=== PATIENT | female | born 1975 | race Caucasian/White ===

== ENCOUNTER 2018-09-02 08:39 | Emergency (ER) | payer SELFPAY ==
[~2018-09-02] VITALS: Ht 154.9 cm; Wt 63.5 kg
[~2018-09-02 08:39] MED LIST: AMLO10TA6 PO; CARV6.2511 PO; LISI-130 PO; TRAM50TA PO
[2018-09-02 11:13] LABS: CALCIUM 9.4 mg/dL (8.5-10.1); CREATININE 7.5 mg/dL (0.6-1.0); GFR 5.9; POTASSIUM 4.7 mmol/L (3.5-5.1)
[2018-09-02 11:19] LABS: ALBUMIN 2.9 g/dL (3.4-5.0); ALBUMIN/GLOBULIN RATIO 0.8 (1.0-1.7); MAGNESIUM 1.9 mg/dL (1.8-2.4); TOTAL BILIRUBIN 0.2 mg/dL (0.2-1.0); TOTAL PROTEIN 6.4 g/dL (6.4-8.2)
--- NOTE | 2018-09-02 11:21 | RAD ---
PORTABLE CHEST 1V Clinical indications: fluid overload end-stage renal disease. COMPARISON: August 25, 2018. Findings: No acute lung infiltrate or pleural effusion or pulmonary edema or lung mass or pneumothorax is seen. The heart size, pulmonary vasculature, mediastinum and both tanisha are stable. Right IJ central line is unchanged in position. Impression: No acute radiographic abnormality is seen. Electronically signed by: James Schaefer MD (09/02/2018 11:16 AM) [facility]
--- NOTE | 2018-09-02 11:39 | PHYS DOC ---
Past Medical History Past Medical History: Hypertension, Renal Disease Past Surgical History: No Surgical History Additional Past Surgical Histo: , 08-31-18 port for dailysis in the right sub-calvian Additional Information: quit 2 weeks ago, 1 ppd smoker before that. Alcohol Use: None Drug Use: None Adult General Chief Complaint Chief Complaint: DIALYSIS PROBLEM HPI HPI Patient is a 42-year-old female who presents with report of ESRD and is being scheduled for dialysis. She states that she was told to come to the emergency room to get dialysis today because she is not scheduled for dialysis until next Tuesday. She denies any chest pain or shortness of breath. She also denies any nausea, vomiting or diarrhea. Patient denies any associated symptoms. Review of Systems Review of Systems Constitutional: Denies fever or chills [] Respiratory: Denies cough or shortness of breath [] Cardiovascular: No additional information not addressed in HPI [] Integument: Denies rash or skin lesions [] Neurologic: Denies headache, focal weakness or sensory changes [] All other systems were reviewed and found to be within normal limits, except as documented in this note. Allergies Allergies Allergies Coded Allergies Type Severity Reaction Last Updated Verified aspirin Allergy Intermediate "burning in stomach" 09/02/18 Yes Physical Exam Physical Exam Constitutional: Well developed, well nourished, no acute distress, non-toxic appearance. [] HENT: Normocephalic, atraumatic, bilateral external ears normal, oropharynx moist, no oral exudates, nose normal. [] Eyes: PERRLA, EOMI, conjunctiva normal, no discharge. [] Neck: Normal range of motion, no tenderness, supple, no stridor. [] Cardiovascular: Regular rate and rhythm [] Lungs & Thorax: Bilateral breath sounds clear to auscultation [] Abdomen: Bowel sounds normal, soft, no tenderness. [] Skin: Warm, dry, no erythema, no rash. [] Extremities: No tenderness, no cyanosis, no clubbing, ROM intact. [] Neurologic: Alert and oriented X 3, no focal deficits noted. [] Current Patient Data Vital Signs Vital Signs Date Time Temp Pulse Resp B/P (MAP) Pulse Ox O2 Delivery O2 Flow Rate FiO2 09/02/18 10:00 98.1 93 20 156/96 (116) 99 Room Air 98.1 Lab Values Laboratory Tests Test 09/02/18 10:45 09/02/18 11:30 Sodium Level 140 mmol/L (136-145) Potassium Level 4.7 mmol/L (3.5-5.1) Chloride Level 104 mmol/L (98-107) Carbon Dioxide Level 22 mmol/L (21-32) Anion Gap 14 (6-14) Blood Urea Nitrogen 88 mg/dL (7-20) H Creatinine 7.5 mg/dL (0.6-1.0) H Estimated GFR (Cockcroft-Gault) 5.9 BUN/Creatinine Ratio 12 (6-20) Glucose Level 78 mg/dL (70-99) Calcium Level 9.4 mg/dL (8.5-10.1) Phosphorus Level 5.0 mg/dL (2.6-4.7) H Magnesium Level 1.9 mg/dL (1.8-2.4) Total Bilirubin 0.2 mg/dL (0.2-1.0) Aspartate Amino Transferase (AST) 30 U/L (15-37) Alanine Aminotransferase (ALT) 21 U/L (14-59) Alkaline Phosphatase 87 U/L (46-116) PR-Krx-N-Type Natriuretic Peptide 48260 pg/mL (0-124) H Total Protein 6.4 g/dL (6.4-8.2) Albumin 2.9 g/dL (3.4-5.0) L Albumin/Globulin Ratio 0.8 (1.0-1.7) L White Blood Count 8.7 x10^3/uL (4.0-11.0) Red Blood Count 2.66 x10^6/uL (3.50-5.40) L Hemoglobin 8.0 g/dL (12.0-15.5) L Hematocrit 24.8 % (36.0-47.0) L Mean Corpuscular Volume 93 fL (79-100) Mean Corpuscular Hemoglobin 30 pg (25-35) Mean Corpuscular Hemoglobin Concent 32 g/dL (31-37) Red Cell Distribution Width 15.6 % (11.5-14.5) H Platelet Count 214 x10^3/uL (140-400) Neutrophils (%) (Auto) 71 % (31-73) Lymphocytes (%) (Auto) 19 % (24-48) L Monocytes (%) (Auto) 6 % (0-9) Eosinophils (%) (Auto) 3 % (0-3) Basophils (%) (Auto) 1 % (0-3) Neutrophils # (Auto) 6.2 x10^3uL (1.8-7.7) Lymphocytes # (Auto) 1.6 x10^3/uL (1.0-4.8) Monocytes # (Auto) 0.5 x10^3/uL (0.0-1.1) Eosinophils # (Auto) 0.3 x10^3/uL (0.0-0.7) Basophils # (Auto) 0.1 x10^3/uL (0.0-0.2) Laboratory Tests 09/02/18 11:30 Laboratory Tests 09/02/18 10:45 EKG EKG [] Radiology/Procedures Radiology/Procedures [] Course & Med Decision Making Course & Med Decision Making Pertinent Labs and Imaging studies reviewed. (See chart for details) Patient moved to room upon arrival was evaluated by your medical staff and blood work was drawn. Patient's case was discussed with Dr. Hernandez and he indicates that if patient does not appear to be fluid overloaded that patient could be discharged home with plan to go to her scheduled dialysis on Tuesday. Patient's blood work returned and while the BUN/creatinine as well as potassium or a little bit higher than prior, after discussing with Dr. Hernandez, he again states that patient is stable for discharge home. He is recommending that patient watch her by mouth fluid intake as well as potassium intake. This plan was reviewed with patient who is in agreement. Dragon Disclaimer Dragon Disclaimer This electronic medical record was generated, in whole or in part, using a voice recognition dictation system. Departure Departure Impression: Primary Impression: ESRD (end stage renal disease) Disposition: HOME, SELF-CARE Condition: STABLE Referrals: NO PCP (PCP) Patient Instructions: Kidney Failure Additional Instructions: Keep your appointment for hemodialysis on Tuesday of this coming week. Return to emergency room if you develop symptoms of chest pain, shortness of breath or weakness. PONCE HERNANDEZ Jr. DO Sep 02, 2018 11:39
[2018-09-02 11:41] LABS: BASO # 0.1 x10^3/uL (0.0-0.2); BASO % 1 % (0-3); EOS # 0.3 x10^3/uL (0.0-0.7); EOS % 3 % (0-3); HEMATOCRIT 24.8 % (36.0-47.0); LYMPH # 1.6 x10^3/uL (1.0-4.8); LYMPH % 19 % (24-48); MEAN CORPUSCULAR HEMOGLOBIN 30 pg (25-35); MEAN CORPUSCULAR HGB CONC 32 g/dL (31-37); MEAN CORPUSCULAR VOLUME 93 fL (79-100); MONO # 0.5 x10^3/uL (0.0-1.1); MONO % 6 % (0-9); NEUT # 6.2 x10^3uL (1.8-7.7); NEUT % 71 % (31-73); PLATELET COUNT 214 x10^3/uL (140-400); RED BLOOD COUNT 2.66 x10^6/uL (3.50-5.40); RED CELL DISTRIBUTION WIDTH 15.6 % (11.5-14.5); WHITE BLOOD COUNT 8.7 x10^3/uL (4.0-11.0)
[2018-09-02 12:07] VITALS: BP 158/99
== END 2018-09-02 12:54 | disposition home or self-care (01) ==
LOC: ER 08:39
DX: I12.0 Hypertensive chronic kidney disease with stage 5 chronic kidney disease or end stage renal disease (principal); N18.6 End stage renal disease; Z87.891 Personal history of nicotine dependence; Z88.6 Allergy status to analgesic agent
CPT/HCPCS: 36415; 71045; 80053; 83735; 83880; 84100; 85025; 99284-25

== ENCOUNTER 2018-09-22 11:16 | Outpatient (CLI) | payer SELFPAY ==
[2018-09-22] VITALS (7 sets, daily range): BP systolic 120–150; BP diastolic 75–99
[~2018-09-22] VITALS: Ht 154.9 cm; Wt 64.4 kg
[~2018-09-22 11:16] MED LIST changes: -AMLO10TA6 PO; +AMLO10TA8 PO
[2018-09-22] MEDS ORDERED: LIDOCAINE 1%/EPI 1:100,000 20 ML VIAL. ONE (11:45)
[2018-09-22] MEDS ORDERED: fentaNYL PF VIAL 100 MCG/2 ML VIAL ONE (12:07)
[2018-09-22] MEDS ORDERED: MIDAZOLAM HCL/PF 2 MG/2 ML VIAL. ONE (12:07)
[2018-09-22] MEDS ORDERED: MIDAZOLAM HCL/PF 2 MG/2 ML VIAL. IV ONE (12:30)
[2018-09-22] MEDS ORDERED: fentaNYL PF VIAL 100 MCG/2 ML VIAL IV ONE (12:30)
[2018-09-22] MEDS ORDERED: LIDOCAINE 1%/EPI 1:100,000 20 ML VIAL. IJ ONE (12:30)
--- NOTE | 2018-09-22 14:36 | RAD ---
Exchange of right internal jugular dialysis catheter 09/22/2018 Indication: Poorly functioning catheter Discussion: The risks and benefits of the procedure were discussed the patient. Informed consent was obtained. Timeout procedure was performed. The right neck and chest including the pre-existing dialysis catheter were prepped and draped using sterile barrier technique. The pre-existing catheter was evaluated fluoroscopically, with the tip in the proximal right H inguinal patient supine position. However in the upright position prior chest radiographs demonstrated the catheter be significantly retracted with catheter tip just proximal to the cavoatrial junction. Catheter was placed over a guidewire, under fluoroscopic guidance, with a new 23 cm palindrome catheter, mildly deeper in position. The new catheter was found to flush and aspirate normally. Catheter was flushed. Catheter was secured in place. Sterile dressings were applied. Fluoroscopy time: 1.2 MIN Dose area product: 2 Gycm2. Impression: Replacement of the right internal jugular tunnel dialysis catheter
== END 2018-09-22 14:14 | disposition home or self-care (01) ==
LOC: INTRAD 11:16
PROVIDERS: ATTEND Internal Medicine Nephrology
DX: N18.6 End stage renal disease (principal); Z88.6 Allergy status to analgesic agent; Z79.899 Other long term (current) drug therapy; Z99.2 Dependence on renal dialysis
CPT/HCPCS: 36581; 77001; C1750; C1769; J2250; J3010; J3490; 99152; 99153

== ENCOUNTER 2018-12-01 09:11 | Day surgery (SDC) | payer MEDICARE, OTHER ==
[~2018-12-01 09:11] MED LIST changes: +BUPIVAC MPF-EPI 0.5%-1:200000 30 ML VIAL. ONE; +HEPARIN SODIUM 5,000 UNIT in IV NORMAL SALINE 500ML BAG 500 ML IRR ONE; +HYDROmorphone 2 MG/ML VIAL IV PRN; +IV RINGERS,LACTATED 1000ML 1,000 ML IV SCH; +MORPHINE SULFATE 2 MG/ML VIAL. IV PRN; +ONDANSETRON PF 4 MG/2 ML VIAL. IV PRN; +PROCHLORPERAZINE 10 MG/2 ML VIAL. IV PRN; +fentaNYL PF VIAL 100 MCG/2 ML VIAL IV PRN
[2018-12-01] MEDS ORDERED: SEVE800T9 PO (09:55)
[2018-12-01] MEDS ORDERED: IV NORMAL SALINE 1000ML BAG 1,000 ML IV ONE (10:00)
[2018-12-01] MEDS ORDERED: ROCURONIUM 50 MG/5 ML VIAL. ONE (10:17)
[2018-12-01] MEDS ORDERED: MIDAZOLAM HCL/PF 2 MG/2 ML VIAL. ONE (10:18)
[2018-12-01] MEDS ORDERED: LIDOCAINE 2% PF 5 ML VIAL. ONE (10:18)
[2018-12-01] MEDS ORDERED: PROPOFOL 20 ML IV ONE (10:18)
[2018-12-01] MEDS ORDERED: fentaNYL PF VIAL 100 MCG/2 ML VIAL ONE (10:18)
[2018-12-01] MEDS ORDERED: ONDANSETRON PF 4 MG/2 ML VIAL. ONE (10:18)
[2018-12-01] MEDS ORDERED: IV NORMAL SALINE 1000ML BAG 1,000 ML IV SCH (10:30)
[2018-12-01 10:43] LABS: BASO # 0.1 x10^3/uL (0.0-0.2); BASO % 1 % (0-3); EOS # 0.2 x10^3/uL (0.0-0.7); EOS % 4 % (0-3); HEMATOCRIT 34.8 % (36.0-47.0); HEMOGLOBIN 11.7 g/dL (12.0-15.5); LYMPH % 31 % (24-48); MEAN CORPUSCULAR HEMOGLOBIN 31 pg (25-35); MEAN CORPUSCULAR HGB CONC 34 g/dL (31-37); MEAN CORPUSCULAR VOLUME 92 fL (79-100); MONO # 0.5 x10^3/uL (0.0-1.1); MONO % 7 % (0-9); NEUT # 3.9 x10^3uL (1.8-7.7); NEUT % 58 % (31-73); PLATELET COUNT 182 x10^3/uL (140-400); RED BLOOD COUNT 3.79 x10^6/uL (3.50-5.40); RED CELL DISTRIBUTION WIDTH 13.7 % (11.5-14.5); WHITE BLOOD COUNT 6.7 x10^3/uL (4.0-11.0)
[2018-12-01] MEDS ORDERED: DEXAMETHASONE SOD PHOS 4 MG/ML VIAL ONE ×2 (10:57)
[2018-12-01 10:59] LABS: CALCIUM 10.2 mg/dL (8.5-10.1); GFR 7.6; POTASSIUM 5.1 mmol/L (3.5-5.1)
[2018-12-01] MEDS ORDERED: ceFAZolin 2GM PREMIX 2 GM/50 ML BAG IV ONE (11:00)
[2018-12-01 11:06] LABS: ALBUMIN 3.6 g/dL (3.4-5.0); TOTAL BILIRUBIN 0.3 mg/dL (0.2-1.0)
[2018-12-01] MEDS ORDERED: GLYCOPYRROLATE 1 MG/5 ML VIAL. ONE (11:18)
[2018-12-01] MEDS ORDERED: NEOSTIGMINE METHYLSULFATE 5 MG/5 ML SYRINGE. ONE (11:18)
[2018-12-01] MEDS ORDERED: KETAMINE HCL IN NACL, ISO-OSM 50 MG/5 ML SYRINGE ONE (11:28)
--- NOTE | 2018-12-01 11:44 | DISCH ---
DISCHARGE INSTRUCTIONS Condition on Discharge Condition on Discharge: Stable Activity After Discharge Activity Instructions for Disc: Activity as tolerated, Avoid exertion Bathing Instructions: No Tub Bath until see Lifting Instructions after Dis: No heavy lifting, No pulling or pushing Exercise Instruction after Dis: Progress as tolerated Driving Instructions after Dis: Do not drive today Diet after Discharge Diet after Discharge: Renal Dialysis Swallowing Supervision: None needed Wound Incision Care Wound/Incision Care: Keep wound/cast CDI Follow-Up Follow up with: Ramón in two weeks Treatment/Equipment after DC Adaptive Equipment Issued: None MARIA ISABEL OLIVO MD Dec 01, 2018 11:44
--- NOTE | 2018-12-01 11:49 | PDOC ---
BRIEF OPERATIVE NOTE Date: Dec 01, 2018 Pre-Op Diagnosis ESRD asking for PD catheter Post-Op Diagnosis same Procedure Performed l/s placement PD catheter Surgeon Ramón Anesthesia Type: General Blood Loss 5cc IV Fluid 1000cc Specimens Obtained none Findings no adhesions Complications none Operative Note Wk # [id number] MARIA ISABEL OLIVO MD Dec 01, 2018 11:49
[2018-12-01] MEDS ORDERED: traMADol 50 MG TABLET PO ONE (12:15)
[2018-12-01 12:26] VITALS: BP 133/79
--- NOTE | 2018-12-01 13:43 | OP ---
DATE OF SURGERY: 12/01/2018 PREOPERATIVE DIAGNOSIS: End-stage renal disease, asking for a peritoneal dialysis catheter. POSTOPERATIVE DIAGNOSIS: End-stage renal disease, asking for a peritoneal dialysis catheter. PROCEDURE: Laparoscopic placement of peritoneal dialysis catheter. SURGEON: Maria Isabel Olivo MD ANESTHESIA: General endotracheal. BLOOD LOSS: 5. INTRAVENOUS: 1 liter. DESCRIPTION OF PROCEDURE: The patient brought to the operating suite, given a general endotracheal anesthetic. Fairchild catheter placed to dependent drainage. Abdomen prepped and draped in the usual sterile fashion. The template was used to outline the course of the catheter allowing for the belt line at the umbilicus. Midline epigastric incision made after local infiltration of 0.5% Marcaine with incision made and a 5 mm Visiport used to safely gain access into the abdominal cavity, taking care to avoid injury of abdominal contents. Pneumoperitoneum established. Camera inserted. The insertion site was infiltrated with local anesthetic, incised and under direct vision, the Cook needle passed. Needle removed and the sheath was dilated followed by placement of the catheter and seating of the Dacron cuff just above the peritoneum. The remaining catheter was tunneled subcutaneously at the access site. Pneumoperitoneum released. Catheter flushed with 500 mL of normal saline, which are readily accepted and drained a similar amount. Incisions closed with subcutaneous 3-0 Vicryl and subcuticular 4-0 Monocryl with Steri-Strips. The catheter was "packed" with 60 mL of heparinized saline. Sterile dressings applied. Fairchild catheter removed. The patient awakened from her anesthetic and taken to the recovery room in satisfactory condition. MARIA ISABEL OLIVO MD DR: DONTRELL/nts JOB#: [id number] / [id number]
== END 2018-12-01 13:20 | disposition home or self-care (01) ==
LOC: SURG 09:11
PROVIDERS: ATTEND Surgery
DX: I12.0 Hypertensive chronic kidney disease with stage 5 chronic kidney disease or end stage renal disease (principal); N18.6 End stage renal disease; F41.9 Anxiety disorder, unspecified; Z88.6 Allergy status to analgesic agent; Z79.899 Other long term (current) drug therapy; Z83.3 Family history of diabetes mellitus; Z99.2 Dependence on renal dialysis
CPT/HCPCS: 36415; 49324; 80048; 82040; 82247; 85025; A7015; J0696; J1100; J1644; J2001; J2250; J2405; J2704; J2710; J3010; J3490; J7030; J7040

== ENCOUNTER 2018-12-20 10:15 | Outpatient (CLI) | payer MEDICARE, OTHER ==
[~2018-12-20] VITALS: Ht 154.9 cm; Wt 72.1 kg
[~2018-12-20 10:15] MED LIST changes: -BUPIVAC MPF-EPI 0.5%-1:200000 30 ML VIAL. ONE; -HEPARIN SODIUM 5,000 UNIT in IV NORMAL SALINE 500ML BAG 500 ML IRR ONE; -HYDROmorphone 2 MG/ML VIAL IV PRN; -IV RINGERS,LACTATED 1000ML 1,000 ML IV SCH; -MORPHINE SULFATE 2 MG/ML VIAL. IV PRN; -ONDANSETRON PF 4 MG/2 ML VIAL. IV PRN; -PROCHLORPERAZINE 10 MG/2 ML VIAL. IV PRN; +SEVE800T9 PO; -fentaNYL PF VIAL 100 MCG/2 ML VIAL IV PRN
[2018-12-20] MEDS ORDERED: IOHEXOL 240 MG/ML 50ML VIAL. ONE (10:32)
[2018-12-20] MEDS ORDERED: LISI-334 PO (10:33)
[2018-12-20] MEDS ORDERED: FURO80TA72 PO (10:33)
[2018-12-20] MEDS ORDERED: IOHEXOL 240 MG/ML 50ML VIAL. IJ ONE (10:45)
[2018-12-20] MEDS ORDERED: CONTRAST GIVEN. MC PRN (10:45)
--- NOTE | 2018-12-20 12:26 | NUR ---
critical potassium called from lab. Dr gonzalez. Spo0ke with Dr. Sanders at 1226. Doctor to get in touch with patient.
[2018-12-20] MEDS ORDERED: SEVE800T9 PO (22:32)
[2018-12-20] MEDS ORDERED: TRAM50TA PO (22:32)
--- NOTE | 2018-12-21 11:30 | RAD ---
Fluoroscopic evaluation of peritoneal dialysis catheter 12/21/2018 Indication: Catheter will not normally aspirate Comparison study: None relevant Discussion: Fluoroscopic evaluation of the previously existing peroneal dialysis catheter was performed. Catheter is grossly normal in position, curled in the pelvis, on initial fluoroscopic imaging. Contrast flows freely into the pelvis. A guidewire was advanced to the catheter however the catheter would not uncoil despite placement of a stiff guidewire. Sluggish aspiration persisted. Catheter was flushed and secured in place. Sterile dressings were applied. Fluoroscopy time:3.1 Minutes Dose area product: 14 Gycm2 Impression: Inability to uncurl the pelvic peritoneal dialysis catheter with persistent sluggish aspiration
== END 2018-12-20 11:45 | disposition home or self-care (01) ==
LOC: INTRAD 10:15
PROVIDERS: ATTEND Internal Medicine Nephrology
DX: T85.691A Other mechanical complication of intraperitoneal dialysis catheter, initial encounter (principal); N18.6 End stage renal disease; E87.5 Hyperkalemia; Z88.6 Allergy status to analgesic agent; Y83.2 Surgical operation with anastomosis, bypass or graft as the cause of abnormal reaction of the patient, or of later complication, without mention of misadventure at the time of the procedure; Y92.89 Other specified places as the place of occurrence of the external cause
CPT/HCPCS: 49400; A4215; C1769; Q9966; 36415; 74190; 84132

== ENCOUNTER 2018-12-20 16:07 | Inpatient (IN) | payer MEDICARE, OTHER ==
[~2018-12-20] VITALS: Ht 154.9 cm; Wt 68.7 kg
[~2018-12-20 16:07] MED LIST changes: +FURO80TA72 PO; +LISI-334 PO
[2018-12-20 16:50] LABS: BASO % 1 % (0-3); EOS # 0.2 x10^3/uL (0.0-0.7); EOS % 2 % (0-3); HEMATOCRIT 32.3 % (36.0-47.0); HEMOGLOBIN 10.8 g/dL (12.0-15.5); LYMPH # 1.4 x10^3/uL (1.0-4.8); LYMPH % 17 % (24-48); MEAN CORPUSCULAR HEMOGLOBIN 31 pg (25-35); MEAN CORPUSCULAR HGB CONC 33 g/dL (31-37); MEAN CORPUSCULAR VOLUME 92 fL (79-100); MONO # 0.4 x10^3/uL (0.0-1.1); MONO % 5 % (0-9); NEUT # 6.3 x10^3uL (1.8-7.7); NEUT % 76 % (31-73); PLATELET COUNT 219 x10^3/uL (140-400); RED BLOOD COUNT 3.51 x10^6/uL (3.50-5.40); RED CELL DISTRIBUTION WIDTH 14.3 % (11.5-14.5); WHITE BLOOD COUNT 8.4 x10^3/uL (4.0-11.0)
--- NOTE | 2018-12-20 16:55 | EKG ---
[facility] [address] [place] [address] Test Date: 2018-12-20 Test Time: 16:24:26 Pat Name: LETICIA MCLEAN Department: Room: Gender: F [employer] Att[employer]: : 1975 Requested By: JUNAID SANDERS Order Number: [id number] Reading MD: Juan Daniel Guardado Measurements Intervals [place] Rate: 88 P: 28 CT: 160 QRS: 26 QRSD: 90 T: 71 QT: 332 QTc: 405 Interpretive Statements SINUS RHYTHM QRS(T) CONTOUR ABNORMALITY CONSIDER ANTEROLATERAL MYOCARDIAL DAMAGE POSSIBLY ABNORMAL ECG Electronically Signed On 01-12-2019 12:07:08 CDT by Juan Daniel Guardado
[2018-12-20 17:07] LABS: ALBUMIN 3.5 g/dL (3.4-5.0); ALBUMIN/GLOBULIN RATIO 0.9 (1.0-1.7); CALCIUM 9.7 mg/dL (8.5-10.1); GFR 2.6; TOTAL BILIRUBIN 0.3 mg/dL (0.2-1.0); TOTAL PROTEIN 7.2 g/dL (6.4-8.2)
[2018-12-20 17:37] LABS: BILIRUBIN,URINE NEGATIVE (NEG); CLARITY,URINE CLEAR; NITRITE,URINE NEGATIVE (NEG); PROTEIN,URINE 100 mg/dL (NEG-TRACE); UROBILINOGEN,URINE 0.2 mg/dL (0.2 mg/dL)
[2018-12-20] MEDS ORDERED: IV NORMAL SALINE 1000ML BAG 1,000 ML IV PRN ×2 (17:43)
[2018-12-20] MEDS ORDERED: cloNIDine HCL 0.1 MG TABLET PO PRN (17:45)
[2018-12-20] MEDS ORDERED: LABETALOL 20 MG/4 ML DISP.SYRIN. IVP PRN (17:45)
[2018-12-20] MEDS ORDERED: DIALYSIS PATIENT. MC PRN (17:45)
[2018-12-20] MEDS ORDERED: diphenhydrAMINE 50 MG/ML VIAL IV PRN ×2 (17:45)
[2018-12-20 17:48] LABS: BACTERIA,URINE MANY /HPF (0-FEW); COLOR,URINE STRAW; RBC,URINE RARE /HPF (0-2); SQUAMOUS EPITHELIAL CELL,UR MANY /LPF; WBC,URINE OCC /HPF (0-4)
--- NOTE | 2018-12-20 17:59 | PHYS DOC ---
Past Medical History Past Medical History: Hypertension, Renal Disease (JUNAID SANDERS APRN) Past Surgical History: No Surgical History Additional Past Surgical Histo: right sub-calvian dialysis port, peritoneal dialysis port L side abd. (JUNAID SANDERS APRN) Alcohol Use: None Drug Use: None (JUNAID SANDERS APRN) Adult General Chief Complaint Chief Complaint: ABNORMAL LABS HPI HPI 43-year-old female presents to ER via POV for complaints of elevated potassium 7.5 on labs obtained for her dialysis. She was instructed to come to the ER for evaluation and was told she would receive dialysis while inpatient. Patient has no complaints on arrival states she is feeling better than she has in the past month. She denies any chest pain, palpitations, or shortness of air. (JUNAID SANDERS APRN) Review of Systems Review of Systems Constitutional: Denies fever or chills. Denies fatigue Eyes: Denies change in visual acuity, redness, or eye pain [] HENT: Denies nasal congestion or sore throat [] Respiratory: Denies cough or shortness of breath [] Cardiovascular: Denies CP/palpitations GI: Denies abdominal pain, nausea, vomiting, bloody stools or diarrhea [] : Denies dysuria or hematuria [] Musculoskeletal: Denies back pain or joint pain [] Integument: Denies rash or skin lesions [] Neurologic: Denies headache, focal weakness or sensory changes. Denies dizziness Endocrine: Denies polyuria or polydipsia [] All other systems were reviewed and found to be within normal limits, except as documented in this note. (JUNAID SANDERS APRN) Allergies Allergies Allergies Coded Allergies Type Severity Reaction Last Updated Verified aspirin Allergy Intermediate "burning in stomach" 12/01/18 Yes (CHAD WATKINS MD) Physical Exam Physical Exam Constitutional: Well developed, well nourished, no acute distress, non-toxic appearance. [] HENT: Normocephalic, atraumatic, oropharynx moist, nose normal. [] Eyes: Pupils equal, conjunctiva normal, no discharge. [] Neck: Normal range of motion, no tenderness, supple, no stridor. [] Cardiovascular: Heart rate regular rhythm, no murmur [] Lungs & Thorax: Bilateral breath sounds clear to auscultation- resp. equal/nonlabored Abdomen: Bowel sounds normal, soft- no distention/rigidity, no tenderness, LLQ peritoneal dialysis cath- no swelling/crepitus around site. Nontender on palp. around cath. No masses, no pulsatile masses. [] Skin: Warm, dry, no erythema, no rash. [] Back: No tenderness, no CVA tenderness. [] Extremities: No tenderness, no cyanosis, no clubbing, ROM intact, no edema. [] Neurologic: Alert and oriented X 3, normal motor function, normal sensory function, no focal deficits noted. [] Psychologic: Affect normal, judgement normal, mood normal. [] (REFFITTJUNAID APRN) Current Patient Data Vital Signs Vital Signs Date Time Temp Pulse Resp B/P (MAP) Pulse Ox O2 Delivery O2 Flow Rate FiO2 12/20/18 16:47 87 17 144/81 (102) 98 Room Air 12/20/18 16:15 98.1 98.1 (CHAD WATKINS MD) Lab Values Laboratory Tests Test 12/20/18 16:25 12/20/18 16:45 Urine Collection Type Unknown Urine Color Straw Urine Clarity Clear Urine pH 7.0 Urine Specific [place] 1.010 Urine Protein 100 mg/dL (NEG-TRACE) Urine Glucose (UA) 250 mg/dL (NEG) Urine Ketones (Stick) Negative mg/dL (NEG) Urine Blood Trace (NEG) Urine Nitrite Negative (NEG) Urine Bilirubin Negative (NEG) Urine Urobilinogen Dipstick 0.2 mg/dL (0.2 mg/dL) Urine Leukocyte Esterase Negative (NEG) Urine RBC Rare /HPF (0-2) Urine WBC Occ /HPF (0-4) Urine Squamous Epithelial Cells Many /LPF Urine Bacteria Many /HPF (0-FEW) White Blood Count 8.4 x10^3/uL (4.0-11.0) Red Blood Count 3.51 x10^6/uL (3.50-5.40) Hemoglobin 10.8 g/dL (12.0-15.5) L Hematocrit 32.3 % (36.0-47.0) L Mean Corpuscular Volume 92 fL (79-100) Mean Corpuscular Hemoglobin 31 pg (25-35) Mean Corpuscular Hemoglobin Concent 33 g/dL (31-37) Red Cell Distribution Width 14.3 % (11.5-14.5) Platelet Count 219 x10^3/uL (140-400) Neutrophils (%) (Auto) 76 % (31-73) H Lymphocytes (%) (Auto) 17 % (24-48) L Monocytes (%) (Auto) 5 % (0-9) Eosinophils (%) (Auto) 2 % (0-3) Basophils (%) (Auto) 1 % (0-3) Neutrophils # (Auto) 6.3 x10^3uL (1.8-7.7) Lymphocytes # (Auto) 1.4 x10^3/uL (1.0-4.8) Monocytes # (Auto) 0.4 x10^3/uL (0.0-1.1) Eosinophils # (Auto) 0.2 x10^3/uL (0.0-0.7) Basophils # (Auto) 0.0 x10^3/uL (0.0-0.2) Sodium Level 139 mmol/L (136-145) Potassium Level 7.0 mmol/L (3.5-5.1) *H Chloride Level 104 mmol/L (98-107) Carbon Dioxide Level 17 mmol/L (21-32) L Anion Gap 18 (6-14) H Blood Urea Nitrogen 111 mg/dL (7-20) H Creatinine 15.0 mg/dL (0.6-1.0) H Estimated GFR (Cockcroft-Gault) 2.6 BUN/Creatinine Ratio 7 (6-20) Glucose Level 81 mg/dL (70-99) Calcium Level 9.7 mg/dL (8.5-10.1) Total Bilirubin 0.3 mg/dL (0.2-1.0) Aspartate Amino Transferase (AST) 13 U/L (15-37) L Alanine Aminotransferase (ALT) 14 U/L (14-59) Alkaline Phosphatase 85 U/L (46-116) Total Protein 7.2 g/dL (6.4-8.2) Albumin 3.5 g/dL (3.4-5.0) Albumin/Globulin Ratio 0.9 (1.0-1.7) L Laboratory Tests 12/20/18 16:45 Laboratory Tests 12/20/18 16:45 (CHAD WATKINS MD) EKG EKG EKG obtained 12/20/18 at [address] Watkins Sinus rhythm Rate 88 No STEMI (JUNAID SANDERS APRN) Radiology/Procedures Radiology/Procedures [] (JUNAID SANDERS APRN) Course & Med Decision Making Course & Med Decision Making Pertinent Labs and Imaging studies reviewed. (See chart for details) Pt was sent to the ER due to labs showing potassium of 7.5 which were obtained by her dialysis center. Patient voiced no complaints and denied any chest pain or palpitations. EKG was obtained with no acute ST elevation or STEMI and troponin was <0.017. Patient had labs obtained while in the ER potassium was 7.0. Patient is being admitted to hospitalist services and dialysis was aware of patient's case. Spoke with mansi Mehta and he was aware of patient and was ready for dialysis with patient. 1721: Spoke with Dr. Ny, hospitalist and discussed pt's case and admit plan. (JUNAID SANDERS APRN) Course & Med Decision Making This pt was seen by an DEREK. I did not see or evaluate the pt unless specified above. I was available for consultation as needed. (CHAD WATKINS MD) Dragon Disclaimer Dragon Disclaimer This electronic medical record was generated, in whole or in part, using a voice recognition dictation system. (JUNAID SANDERS APRN) Departure Departure Impression: Primary Impression: Hyperkalemia Disposition: ADMITTED INPATIENT Admitting Physician: Other (Dr. Ny) (JUNAID SANDERS APRN) Condition: STABLE Referrals: NO PCP (PCP) JUNAID SANDERS APRN December 20, 2018 17:59 CHAD WATKINS MD December 29, 2018 18:35
[2018-12-20] MEDS ORDERED: LORazepam 0.5 MG TABLET PO PRN (20:15)
[2018-12-20] MEDS ORDERED: ACETAMINOPHEN 325 MG TABLET. PO PRN (20:15)
[2018-12-20] MEDS ORDERED: ZOLPIDEM 5 MG TABLET. PO PRN (20:15)
[2018-12-20] MEDS ORDERED: DOCUSATE SODIUM 100 MG CAPSULE. PO PRN (20:15)
[2018-12-20] MEDS ORDERED: ONDANSETRON PF 4 MG/2 ML VIAL. IV PRN (20:15)
[2018-12-20] MEDS ORDERED: guaiFENesin ORAL 200 MG/10 ML LIQUID. PO PRN (20:15)
[2018-12-20] MEDS ORDERED: ALBUTEROL SULFATE 2.5 MG/3 ML NEBU. NEB PRN (20:15)
--- NOTE | 2018-12-20 20:44 | PDOC1 ---
History and Physical Date of Admission Date of Admission 12/20/2018 Identification/Chief Complaint Chief Complaint my potassium is high Source Source: Chart review, Patient History of Present Illness History of Present Illness Patient who is a n ESRD on HD who recently is transitioning to peritoneal dialysis was in her usual state of health. She came to have her labs checked and found to be hyperkalemic reason why we were asked to admit for consult with nephrology and HD treatment to correct her hyeprkalemia. No dietary transgression reported. SHe has just started the transition. Patient denies chest pain no palpitations no shortness of breath no signs of decompensation , Patient is being evluated in the dialysis center. No concerns voiced during my encounter. Past Medical History Renal/: Chronic renal insuff Past Surgical History Past Surgical History: No pertinent history Social History ALCOHOL: none Drugs: Marijuana, Crystal meth Current Problem List Problem List Problems Medical Problems: (1) Hyperkalemia Status: Acute Current Medications Current Medications Current Medications Medications (Trade) Dose Ordered Sig/Corey Start Time Stop Time Status Last Admin Dose Admin Acetaminophen (Tylenol) 650 mg PRN Q4HRS PRN 12/20/18 20:15 Albuterol Sulfate (Ventolin Neb Soln) 2.5 mg PRN Q4HRS PRN 12/20/18 20:15 Amlodipine Besylate (Norvasc) 10 mg DAILY 12/21/18 09:00 Carvedilol (Coreg) 6.25 mg BIDWMEALS 12/21/18 08:00 Clonidine HCl (Catapres) 0.1 mg 1X PRN PRN 12/20/18 17:45 12/21/18 17:44 Diphenhydramine HCl (Benadryl) 25 mg 1X PRN PRN 12/20/18 17:45 12/21/18 17:44 Docusate Sodium (Colace) 100 mg PRN BID PRN 12/20/18 20:15 Furosemide (Lasix) 80 mg DAILY 12/21/18 09:00 Guaifenesin (Robitussin) 200 mg PRN Q4HRS PRN 12/20/18 20:15 Info (PHARMACY MONITORING -- do not chart) 1 each PRN DAILY PRN 12/20/18 17:45 Labetalol HCl (Normodyne Iv Push) 10 mg PRN Q1HR PRN 12/20/18 17:45 12/21/18 17:44 Lisinopril (Prinivil) 20 mg DAILY 12/21/18 09:00 Lorazepam (Ativan) 0.5 mg PRN Q4HRS PRN 12/20/18 20:15 Ondansetron HCl (Zofran) 4 mg PRN Q4HRS PRN 12/20/18 20:15 Sodium Chloride 1,000 ml @ 400 mls/hr Q2H30M PRN 12/20/18 17:43 12/21/18 05:42 Zolpidem Tartrate (Ambien) 5 mg PRN QHS PRN 12/20/18 20:15 Allergies Allergies Allergies Coded Allergies Type Severity Reaction Last Updated Verified aspirin Allergy Intermediate "burning in stomach" 12/01/18 Yes ROS Review of System CONSTITUTIONAL: No fever or chills EYES: No recent changes SKIN: No rash or itching CARDIOVASCULAR: No chest pain, syncope, palpitations, or edema RESPIRATORY: No SOB or cough GASTROINTESTINAL: No nausea, vomiting or abdominal pain NEUROLOGICAL: No headaches or weakness ENDOCRINE: No cold or heat intolerance GENITOURINARY: No urgency or frequency of urination MUSCULOSKELETAL: No back pain or joint pain LYMPHATICS: No enlarged lymph nodes PSYCHIATRIC: No anxiety or depression Physical Exam Physical Exam GEN.: No apparent distress. Alert and oriented. HEENT: Head is normocephalic, atraumatic NECK: Supple. LUNGS: Clear to auscultation. HEART: RRR, S1, S2 present. Peripheral pulses intact ABDOMEN: Soft, nontender. Positive bowel sounds. EXTREMITIES: Without any cyanosis. NEUROLOGIC: Normal speech, normal tone PSYCHIATRIC: Normal affect, normal mood. SKIN: No ulcerations Vitals Vitals Vital Signs Date Time Temp Pulse Resp B/P (MAP) Pulse Ox O2 Delivery O2 Flow Rate FiO2 12/20/18 17:47 90 16 140/81 (100) 96 Room Air 12/20/18 16:15 98.1 98.1 Labs Labs Laboratory Tests Test 12/20/18 16:25 12/20/18 16:45 Urine Collection Type Unknown Urine Color Straw Urine Clarity Clear Urine pH 7.0 Urine Specific [place] 1.010 Urine Protein 100 mg/dL (NEG-TRACE) Urine Glucose (UA) 250 mg/dL (NEG) Urine Ketones (Stick) Negative mg/dL (NEG) Urine Blood Trace (NEG) Urine Nitrite Negative (NEG) Urine Bilirubin Negative (NEG) Urine Urobilinogen Dipstick 0.2 mg/dL (0.2 mg/dL) Urine Leukocyte Esterase Negative (NEG) Urine RBC Rare /HPF (0-2) Urine WBC Occ /HPF (0-4) Urine Squamous Epithelial Cells Many /LPF Urine Bacteria Many /HPF (0-FEW) White Blood Count 8.4 x10^3/uL (4.0-11.0) Red Blood Count 3.51 x10^6/uL (3.50-5.40) Hemoglobin 10.8 g/dL (12.0-15.5) Hematocrit 32.3 % (36.0-47.0) Mean Corpuscular Volume 92 fL (79-100) Mean Corpuscular Hemoglobin 31 pg (25-35) Mean Corpuscular Hemoglobin Concent 33 g/dL (31-37) Red Cell Distribution Width 14.3 % (11.5-14.5) Platelet Count 219 x10^3/uL (140-400) Neutrophils (%) (Auto) 76 % (31-73) Lymphocytes (%) (Auto) 17 % (24-48) Monocytes (%) (Auto) 5 % (0-9) Eosinophils (%) (Auto) 2 % (0-3) Basophils (%) (Auto) 1 % (0-3) Neutrophils # (Auto) 6.3 x10^3uL (1.8-7.7) Lymphocytes # (Auto) 1.4 x10^3/uL (1.0-4.8) Monocytes # (Auto) 0.4 x10^3/uL (0.0-1.1) Eosinophils # (Auto) 0.2 x10^3/uL (0.0-0.7) Basophils # (Auto) 0.0 x10^3/uL (0.0-0.2) Sodium Level 139 mmol/L (136-145) Potassium Level 7.0 mmol/L (3.5-5.1) Chloride Level 104 mmol/L (98-107) Carbon Dioxide Level 17 mmol/L (21-32) Anion Gap 18 (6-14) Blood Urea Nitrogen 111 mg/dL (7-20) Creatinine 15.0 mg/dL (0.6-1.0) Estimated GFR (Cockcroft-Gault) 2.6 BUN/Creatinine Ratio 7 (6-20) Glucose Level 81 mg/dL (70-99) Calcium Level 9.7 mg/dL (8.5-10.1) Total Bilirubin 0.3 mg/dL (0.2-1.0) Aspartate Amino Transf (AST/SGOT) 13 U/L (15-37) Alanine Aminotransferase (ALT/SGPT) 14 U/L (14-59) Alkaline Phosphatase 85 U/L (46-116) Total Protein 7.2 g/dL (6.4-8.2) Albumin 3.5 g/dL (3.4-5.0) Albumin/Globulin Ratio 0.9 (1.0-1.7) Laboratory Tests Test 12/20/18 16:25 12/20/18 16:45 Urine Collection Type Unknown Urine Color Straw Urine Clarity Clear Urine pH 7.0 Urine Specific [place] 1.010 Urine Protein 100 mg/dL (NEG-TRACE) Urine Glucose (UA) 250 mg/dL (NEG) Urine Ketones (Stick) Negative mg/dL (NEG) Urine Blood Trace (NEG) Urine Nitrite Negative (NEG) Urine Bilirubin Negative (NEG) Urine Urobilinogen Dipstick 0.2 mg/dL (0.2 mg/dL) Urine Leukocyte Esterase Negative (NEG) Urine RBC Rare /HPF (0-2) Urine WBC Occ /HPF (0-4) Urine Squamous Epithelial Cells Many /LPF Urine Bacteria Many /HPF (0-FEW) White Blood Count 8.4 x10^3/uL (4.0-11.0) Red Blood Count 3.51 x10^6/uL (3.50-5.40) Hemoglobin 10.8 g/dL (12.0-15.5) Hematocrit 32.3 % (36.0-47.0) Mean Corpuscular Volume 92 fL (79-100) Mean Corpuscular Hemoglobin 31 pg (25-35) Mean Corpuscular Hemoglobin Concent 33 g/dL (31-37) Red Cell Distribution Width 14.3 % (11.5-14.5) Platelet Count 219 x10^3/uL (140-400) Neutrophils (%) (Auto) 76 % (31-73) Lymphocytes (%) (Auto) 17 % (24-48) Monocytes (%) (Auto) 5 % (0-9) Eosinophils (%) (Auto) 2 % (0-3) Basophils (%) (Auto) 1 % (0-3) Neutrophils # (Auto) 6.3 x10^3uL (1.8-7.7) Lymphocytes # (Auto) 1.4 x10^3/uL (1.0-4.8) Monocytes # (Auto) 0.4 x10^3/uL (0.0-1.1) Eosinophils # (Auto) 0.2 x10^3/uL (0.0-0.7) Basophils # (Auto) 0.0 x10^3/uL (0.0-0.2) Sodium Level 139 mmol/L (136-145) Potassium Level 7.0 mmol/L (3.5-5.1) Chloride Level 104 mmol/L (98-107) Carbon Dioxide Level 17 mmol/L (21-32) Anion Gap 18 (6-14) Blood Urea Nitrogen 111 mg/dL (7-20) Creatinine 15.0 mg/dL (0.6-1.0) Estimated GFR (Cockcroft-Gault) 2.6 BUN/Creatinine Ratio 7 (6-20) Glucose Level 81 mg/dL (70-99) Calcium Level 9.7 mg/dL (8.5-10.1) Total Bilirubin 0.3 mg/dL (0.2-1.0) Aspartate Amino Transf (AST/SGOT) 13 U/L (15-37) Alanine Aminotransferase (ALT/SGPT) 14 U/L (14-59) Alkaline Phosphatase 85 U/L (46-116) Total Protein 7.2 g/dL (6.4-8.2) Albumin 3.5 g/dL (3.4-5.0) Albumin/Globulin Ratio 0.9 (1.0-1.7) VTE Prophylaxis Ordered VTE Prophylaxis Devices: Yes VTE Pharmacological Prophylaxi: No Assessment/Plan Assessment/Plan ESRD on Hd Hyperkalemia, asymptomatic high anion gap aciodsis most liekly related to her electrolyte disturbance as a consequence of her medical renal disease Plan: HD as per nephrology reassess int he am maintain on telemetry further recommendations based on clinical course. SNEHA VELEZ MD December 20, 2018 20:44
[2018-12-20 21:25] VITALS: BP 151/76
[2018-12-20] MEDS ORDERED: SEVE800T9 PO (22:32)
[2018-12-20] MEDS ORDERED: TRAM50TA PO (22:32)
[2018-12-20 23:00] VITALS: BP 146/73
[2018-12-20] MEDS: CARVEDILOL 6.25 MG TABLET. PO SCH (23:03)
[2018-12-20] MEDS: SEVELAMER CARBONATE 800 MG TABLET. PO SCH (23:03)
[2018-12-21 04:13] VITALS: BP 102/75
[2018-12-21 07:00] VITALS: BP 139/85
[2018-12-21 07:45] LABS: ALBUMIN 3.5 g/dL (3.4-5.0); ALBUMIN/GLOBULIN RATIO 0.9 (1.0-1.7); CALCIUM 9.6 mg/dL (8.5-10.1); GFR 4.7; POTASSIUM 4.6 mmol/L (3.5-5.1); TOTAL BILIRUBIN 0.3 mg/dL (0.2-1.0); TOTAL PROTEIN 7.2 g/dL (6.4-8.2)
[2018-12-21] MEDS ORDERED: CARVEDILOL 6.25 MG TABLET. PO SCH (08:00)
[2018-12-21] MEDS: SEVELAMER CARBONATE 800 MG TABLET. PO SCH ×2 (08:57→12:00)
[2018-12-21] MEDS: CARVEDILOL 6.25 MG TABLET. PO SCH (08:58)
[2018-12-21] MEDS ORDERED: LISINOPRIL 20 MG TABLET PO SCH (09:00)
[2018-12-21] MEDS ORDERED: amLODIPine BESYLATE 10 MG TABLET PO SCH (09:00)
[2018-12-21] MEDS ORDERED: FUROSEMIDE 80 MG TABLET. PO SCH (09:00)
[2018-12-21] MEDS ORDERED: diphenhydrAMINE 50 MG/ML VIAL IV PRN ×2 (09:30)
[2018-12-21] MEDS ORDERED: DIALYSIS PATIENT. MC PRN (09:30)
--- NOTE | 2018-12-21 09:53 | PDOC2 ---
CONSULT Date of Consult Date of Consult DATE: 12/21/18 TIME: 09:40 Reason for Consult Reason for Consult: ESRD, Hyperkalemia Referring Physician Referring Physician: Dr. Ny Source Source: Chart review, Patient History of Present Illness Reason for Visit: Pt is 43 yo female ESRD on HD TTS with Dr. Hernandez who recently is transitioning to peritoneal dialysis .She has been on HD since Sep 2018. She has been in the process of transitioning to PD - PD cath was placed by Dr Melgar in November 2018 . Recently started attempting to use PD cath at the OP center,able to instill fluid, however minimal return. She was scheduled with IR yesterday, labs were drawn and was found to have K of 7(results after Pt left the hospital) She was asjed to come back to ED for Urgent HD. She reports that she had only 1 HD treatment recently as she was going for PD Denies N/V or abdominal pain. has Good UOP . Denies Constipation .Patient denies chest pain no palpitations no shortness of breath no signs of decompensation. She states she had gain weight since her last HD treatment, though no LE edema She was Dialyzed yesterday Past Medical History Renal/: Chronic renal insuff Past Surgical History Past Surgical History: No pertinent history Social History ALCOHOL: none Drugs: Marijuana, Crystal meth Lives: with Family Current Problem List Problem List Problems Medical Problems: (1) Hyperkalemia Status: Acute Current Medications Current Medications Current Medications Sodium Chloride 1,000 ml @ 1,000 mls/hr Q1H PRN IV hypotension; Start 12/20/18 at 17:43; Stop 12/20/18 at 23:42; Status DC Diphenhydramine HCl (Benadryl) 25 mg 1X PRN PRN IV ITCHING; Start 12/20/18 at 17:45; Stop 12/21/18 at 09:31; Status DC Diphenhydramine HCl (Benadryl) 25 mg 1X PRN PRN IV ITCHING; Start 12/20/18 at 17:45; Stop 12/21/18 at 09:31; Status DC Labetalol HCl (Normodyne Iv Push) 10 mg PRN Q1HR PRN IVP SBP > 180; Start 12/20/18 at 17:45; Stop 12/21/18 at 17:44 Clonidine HCl (Catapres) 0.1 mg 1X PRN PRN PO SBP > 180; Start 12/20/18 at 17:45; Stop 12/21/18 at 17:44 Sodium Chloride 1,000 ml @ 400 mls/hr Q2H30M PRN IV PATENCY; Start 12/20/18 at 17:43; Stop 12/21/18 at 05:42; Status DC Info (PHARMACY MONITORING -- do not chart) 1 each PRN DAILY PRN MC SEE COMMENTS; Start 12/20/18 at 17:45 Ondansetron HCl (Zofran) 4 mg PRN Q4HRS PRN IV NAUSEA/VOMITING; Start 12/20/18 at 20:15 Zolpidem Tartrate (Ambien) 5 mg PRN QHS PRN PO INSOMNIA; Start 12/20/18 at 20:15 Acetaminophen (Tylenol) 650 mg PRN Q4HRS PRN PO TEMP OVER 100.4F OR MILD PAIN; Start 12/20/18 at 20:15 Docusate Sodium (Colace) 100 mg PRN BID PRN PO CONSTIPATION; Start 12/20/18 at 20:15 Albuterol Sulfate (Ventolin Neb Soln) 2.5 mg PRN Q4HRS PRN NEB SHORTNESS OF BREATH; Start 12/20/18 at 20:15 Guaifenesin (Robitussin) 200 mg PRN Q4HRS PRN PO COUGH; Start 12/20/18 at 20:15 Lorazepam (Ativan) 0.5 mg PRN Q4HRS PRN PO ANXIETY / AGITATION; Start 12/20/18 at 20:15 Amlodipine Besylate (Norvasc) 10 mg DAILY PO Last administered on 12/21/18at 08:58; Start 12/21/18 at 09:00 Carvedilol (Coreg) 6.25 mg BIDWMEALS PO ; Start 12/21/18 at 08:00; Stop 12/21/18 at 08:00; Status DC Lisinopril (Prinivil) 20 mg DAILY PO Last administered on 12/21/18at 08:57; Start 12/21/18 at 09:00 Furosemide (Lasix) 80 mg DAILY PO Last administered on 12/21/18at 08:58; Start 12/21/18 at 09:00 Carvedilol (Coreg) 6.25 mg BIDWMEALS PO Last administered on 12/21/18at 08:58; Start 12/20/18 at 22:45 Sevelamer Carbonate (Renvela) 2,400 mg TIDWMEALS PO Last administered on 12/21/18at 08:57; Start 12/20/18 at 22:45 Sodium Chloride 1,000 ml @ 1,000 mls/hr Q1H PRN IV hypotension; Start 12/21/18 at 10:00; Stop 12/21/18 at 19:00 Diphenhydramine HCl (Benadryl) 25 mg 1X PRN PRN IV ITCHING; Start 12/21/18 at 09:30; Stop 12/21/18 at 19:00 Diphenhydramine HCl (Benadryl) 25 mg 1X PRN PRN IV ITCHING; Start 12/21/18 at 09:30; Stop 12/21/18 at 19:00 Sodium Chloride 1,000 ml @ 400 mls/hr Q2H30M PRN IV PATENCY; Start 12/21/18 at 10:00; Stop 12/21/18 at 19:00 Info (PHARMACY MONITORING -- do not chart) 1 each PRN DAILY PRN MC SEE COMMENTS; Start 12/21/18 at 09:30; Status UNV Active Scripts Active Amlodipine Besylate 10 Mg Tablet 10 Mg PO DAILY MDD 1 Carvedilol (Carvedilol) 6.25 Mg Tablet 6.25 Mg PO BIDWMEALS MDD 1 Reported Tramadol Hcl 50 Mg Tablet 50 Mg PO Q6HRS PRN Renvela (Sevelamer Carbonate) 800 Mg Tablet 3 Tab PO TID Lasix (Furosemide) 80 Mg Tablet 1 Tab PO DAILY Lisinopril 20 Mg Tablet 1 Tab PO DAILY Allergies Allergies: Coded Allergies: aspirin (Verified Allergy, Intermediate, "burning in stomach", 12/01/18) ROS Review of System As per HPI Physical Exam Physical Exam GEN.: No apparent distress. Alert and oriented. HEENT: OM moist NECK: Supple. LUNGS: Clear to auscultation. HEART: RRR, S1, S2 present. Peripheral pulses intact ABDOMEN: Soft, nontender, PD Cath in place EXTREMITIES: No edema NEUROLOGIC: Grossly Normal PSYCHIATRIC: Normal affect, normal mood. SKIN: No rash No [place] TDC Rt side Vital Signs Vital Signs Date Time Temp Pulse Resp B/P (MAP) Pulse Ox O2 Delivery O2 Flow Rate FiO2 12/21/18 08:58 89 139/85 12/21/18 08:00 Room Air 12/21/18 07:00 98.0 18 99 98.0 Assessment & Plan ESRD- TTS with Dr. 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 Melgar consulted Hyperkalemia- at presentation Urgent HD yesterday Dialysis Today per her TTS schedule Tolerating well HTN- Continue Antihypertensives Discussed with Pt and RN Labs Labs Laboratory Tests Test 12/20/18 16:25 12/20/18 16:45 12/21/18 07:10 Urine Collection Type Unknown Urine Color Straw Urine Clarity Clear Urine pH 7.0 Urine Specific [place] 1.010 Urine Protein 100 mg/dL (NEG-TRACE) Urine Glucose (UA) 250 mg/dL (NEG) Urine Ketones (Stick) Negative mg/dL (NEG) Urine Blood Trace (NEG) Urine Nitrite Negative (NEG) Urine Bilirubin Negative (NEG) Urine Urobilinogen Dipstick 0.2 mg/dL (0.2 mg/dL) Urine Leukocyte Esterase Negative (NEG) Urine RBC Rare /HPF (0-2) Urine WBC Occ /HPF (0-4) Urine Squamous Epithelial Cells Many /LPF Urine Bacteria Many /HPF (0-FEW) White Blood Count 8.4 x10^3/uL (4.0-11.0) Red Blood Count 3.51 x10^6/uL (3.50-5.40) Hemoglobin 10.8 g/dL (12.0-15.5) Hematocrit 32.3 % (36.0-47.0) Mean Corpuscular Volume 92 fL (79-100) Mean Corpuscular Hemoglobin 31 pg (25-35) Mean Corpuscular Hemoglobin Concent 33 g/dL (31-37) Red Cell Distribution Width 14.3 % (11.5-14.5) Platelet Count 219 x10^3/uL (140-400) Neutrophils (%) (Auto) 76 % (31-73) Lymphocytes (%) (Auto) 17 % (24-48) Monocytes (%) (Auto) 5 % (0-9) Eosinophils (%) (Auto) 2 % (0-3) Basophils (%) (Auto) 1 % (0-3) Neutrophils # (Auto) 6.3 x10^3uL (1.8-7.7) Lymphocytes # (Auto) 1.4 x10^3/uL (1.0-4.8) Monocytes # (Auto) 0.4 x10^3/uL (0.0-1.1) Eosinophils # (Auto) 0.2 x10^3/uL (0.0-0.7) Basophils # (Auto) 0.0 x10^3/uL (0.0-0.2) Sodium Level 139 mmol/L (136-145) 142 mmol/L (136-145) Potassium Level 7.0 mmol/L (3.5-5.1) 4.6 mmol/L (3.5-5.1) Chloride Level 104 mmol/L (98-107) 99 mmol/L (98-107) Carbon Dioxide Level 17 mmol/L (21-32) 30 mmol/L (21-32) Anion Gap 18 (6-14) 13 (6-14) Blood Urea Nitrogen 111 mg/dL (7-20) 51 mg/dL (7-20) Creatinine 15.0 mg/dL (0.6-1.0) 9.0 mg/dL (0.6-1.0) Estimated GFR (Cockcroft-Gault) 2.6 4.7 BUN/Creatinine Ratio 7 (6-20) 6 (6-20) Glucose Level 81 mg/dL (70-99) 90 mg/dL (70-99) Calcium Level 9.7 mg/dL (8.5-10.1) 9.6 mg/dL (8.5-10.1) Total Bilirubin 0.3 mg/dL (0.2-1.0) 0.3 mg/dL (0.2-1.0) Aspartate Amino Transf (AST/SGOT) 13 U/L (15-37) 15 U/L (15-37) Alanine Aminotransferase (ALT/SGPT) 14 U/L (14-59) 14 U/L (14-59) Alkaline Phosphatase 85 U/L (46-116) 86 U/L (46-116) Total Protein 7.2 g/dL (6.4-8.2) 7.2 g/dL (6.4-8.2) Albumin 3.5 g/dL (3.4-5.0) 3.5 g/dL (3.4-5.0) Albumin/Globulin Ratio 0.9 (1.0-1.7) 0.9 (1.0-1.7) Laboratory Tests Test 12/20/18 16:25 12/20/18 16:45 12/21/18 07:10 Urine Collection Type Unknown Urine Color Straw Urine Clarity Clear Urine pH 7.0 Urine Specific [place] 1.010 Urine Protein 100 mg/dL (NEG-TRACE) Urine Glucose (UA) 250 mg/dL (NEG) Urine Ketones (Stick) Negative mg/dL (NEG) Urine Blood Trace (NEG) Urine Nitrite Negative (NEG) Urine Bilirubin Negative (NEG) Urine Urobilinogen Dipstick 0.2 mg/dL (0.2 mg/dL) Urine Leukocyte Esterase Negative (NEG) Urine RBC Rare /HPF (0-2) Urine WBC Occ /HPF (0-4) Urine Squamous Epithelial Cells Many /LPF Urine Bacteria Many /HPF (0-FEW) White Blood Count 8.4 x10^3/uL (4.0-11.0) Red Blood Count 3.51 x10^6/uL (3.50-5.40) Hemoglobin 10.8 g/dL (12.0-15.5) Hematocrit 32.3 % (36.0-47.0) Mean Corpuscular Volume 92 fL (79-100) Mean Corpuscular Hemoglobin 31 pg (25-35) Mean Corpuscular Hemoglobin Concent 33 g/dL (31-37) Red Cell Distribution Width 14.3 % (11.5-14.5) Platelet Count 219 x10^3/uL (140-400) Neutrophils (%) (Auto) 76 % (31-73) Lymphocytes (%) (Auto) 17 % (24-48) Monocytes (%) (Auto) 5 % (0-9) Eosinophils (%) (Auto) 2 % (0-3) Basophils (%) (Auto) 1 % (0-3) Neutrophils # (Auto) 6.3 x10^3uL (1.8-7.7) Lymphocytes # (Auto) 1.4 x10^3/uL (1.0-4.8) Monocytes # (Auto) 0.4 x10^3/uL (0.0-1.1) Eosinophils # (Auto) 0.2 x10^3/uL (0.0-0.7) Basophils # (Auto) 0.0 x10^3/uL (0.0-0.2) Sodium Level 139 mmol/L (136-145) 142 mmol/L (136-145) Potassium Level 7.0 mmol/L (3.5-5.1) 4.6 mmol/L (3.5-5.1) Chloride Level 104 mmol/L (98-107) 99 mmol/L (98-107) Carbon Dioxide Level 17 mmol/L (21-32) 30 mmol/L (21-32) Anion Gap 18 (6-14) 13 (6-14) Blood Urea Nitrogen 111 mg/dL (7-20) 51 mg/dL (7-20) Creatinine 15.0 mg/dL (0.6-1.0) 9.0 mg/dL (0.6-1.0) Estimated GFR (Cockcroft-Gault) 2.6 4.7 BUN/Creatinine Ratio 7 (6-20) 6 (6-20) Glucose Level 81 mg/dL (70-99) 90 mg/dL (70-99) Calcium Level 9.7 mg/dL (8.5-10.1) 9.6 mg/dL (8.5-10.1) Total Bilirubin 0.3 mg/dL (0.2-1.0) 0.3 mg/dL (0.2-1.0) Aspartate Amino Transf (AST/SGOT) 13 U/L (15-37) 15 U/L (15-37) Alanine Aminotransferase (ALT/SGPT) 14 U/L (14-59) 14 U/L (14-59) Alkaline Phosphatase 85 U/L (46-116) 86 U/L (46-116) Total Protein 7.2 g/dL (6.4-8.2) 7.2 g/dL (6.4-8.2) Albumin 3.5 g/dL (3.4-5.0) 3.5 g/dL (3.4-5.0) Albumin/Globulin Ratio 0.9 (1.0-1.7) 0.9 (1.0-1.7) Review All relevant outside records, renal labs, imaging studies, telemetry/EKG's were reviewed. Images Images Fluoroscopic evaluation of peritoneal dialysis catheter 12/21/2018 Indication: Catheter will not normally aspirate Comparison study: None relevant Discussion: Fluoroscopic evaluation of the previously existing peroneal dialysis catheter was performed. Catheter is grossly normal in position, curled in the pelvis, on initial fluoroscopic imaging. Contrast flows freely into the pelvis. A guidewire was advanced to the catheter however the catheter would not uncoil despite placement of a stiff guidewire. Sluggish aspiration persisted. Catheter was flushed and secured in place. Sterile dressings were applied. SHERRY MAGDALENO MD December 21, 2018 09:53
[2018-12-21] MEDS ORDERED: IV NORMAL SALINE 1000ML BAG 1,000 ML IV PRN ×2 (10:00)
--- NOTE | 2018-12-21 10:53 | PDOC2 ---
GRECIA MORALES PROVIDER SCRIBE 12/21/18 1053: CONSULT Date of Consult Date of Consult DATE: 12/21/18 TIME: 10:33 Reason for Consult Reason for Consult: PD cath malfunction Identification/Chief Complaint Chief Complaint PD cath malfunction Source Source: Chart review, Patient History of Present Illness Reason for Visit: PD cath placed by Dr Olivo in November. Recently started attempting to use PD cath. Able to instill fluid, however minimal return. Denies pain, nausea, or emesis. Bowels working well Past Medical History Cardiovascular: HTN, Hyperlipidemia Pulmonary: COPD Psych: Anxiety, Depression Renal/: Chronic renal insuff Past Surgical History Past Surgical History: Other (PD cath) Family History Family History: Other (noncontributory to current illness ) Social History 1 pack per day ALCOHOL: none Drugs: Marijuana, Crystal meth Lives: with Family Current Problem List Problem List Problems Medical Problems: (1) Hyperkalemia Status: Acute Current Medications Current Medications Current Medications Sodium Chloride 1,000 ml @ 1,000 mls/hr Q1H PRN IV hypotension; Start 12/20/18 at 17:43; Stop 12/20/18 at 23:42; Status DC Diphenhydramine HCl (Benadryl) 25 mg 1X PRN PRN IV ITCHING; Start 12/20/18 at 17:45; Stop 12/21/18 at 09:31; Status DC Diphenhydramine HCl (Benadryl) 25 mg 1X PRN PRN IV ITCHING; Start 12/20/18 at 17:45; Stop 12/21/18 at 09:31; Status DC Labetalol HCl (Normodyne Iv Push) 10 mg PRN Q1HR PRN IVP SBP > 180; Start 12/20/18 at 17:45; Stop 12/21/18 at 17:44 Clonidine HCl (Catapres) 0.1 mg 1X PRN PRN PO SBP > 180; Start 12/20/18 at 17:45; Stop 12/21/18 at 17:44 Sodium Chloride 1,000 ml @ 400 mls/hr Q2H30M PRN IV PATENCY; Start 12/20/18 at 17:43; Stop 12/21/18 at 05:42; Status DC Info (PHARMACY MONITORING -- do not chart) 1 each PRN DAILY PRN MC SEE COMMENTS; Start 12/20/18 at 17:45 Ondansetron HCl (Zofran) 4 mg PRN Q4HRS PRN IV NAUSEA/VOMITING; Start 12/20/18 at 20:15 Zolpidem Tartrate (Ambien) 5 mg PRN QHS PRN PO INSOMNIA; Start 12/20/18 at 20:15 Acetaminophen (Tylenol) 650 mg PRN Q4HRS PRN PO TEMP OVER 100.4F OR MILD PAIN; Start 12/20/18 at 20:15 Docusate Sodium (Colace) 100 mg PRN BID PRN PO CONSTIPATION; Start 12/20/18 at 20:15 Albuterol Sulfate (Ventolin Neb Soln) 2.5 mg PRN Q4HRS PRN NEB SHORTNESS OF BREATH; Start 12/20/18 at 20:15 Guaifenesin (Robitussin) 200 mg PRN Q4HRS PRN PO COUGH; Start 12/20/18 at 20:15 Lorazepam (Ativan) 0.5 mg PRN Q4HRS PRN PO ANXIETY / AGITATION; Start 12/20/18 at 20:15 Amlodipine Besylate (Norvasc) 10 mg DAILY PO Last administered on 12/21/18at 08:58; Start 12/21/18 at 09:00 Carvedilol (Coreg) 6.25 mg BIDWMEALS PO ; Start 12/21/18 at 08:00; Stop 12/21/18 at 08:00; Status DC Lisinopril (Prinivil) 20 mg DAILY PO Last administered on 12/21/18at 08:57; Start 12/21/18 at 09:00 Furosemide (Lasix) 80 mg DAILY PO Last administered on 12/21/18at 08:58; Start 12/21/18 at 09:00 Carvedilol (Coreg) 6.25 mg BIDWMEALS PO Last administered on 12/21/18at 08:58; Start 12/20/18 at 22:45 Sevelamer Carbonate (Renvela) 2,400 mg TIDWMEALS PO Last administered on 12/21/18at 08:57; Start 12/20/18 at 22:45 Sodium Chloride 1,000 ml @ 1,000 mls/hr Q1H PRN IV hypotension; Start 12/21/18 at 10:00; Stop 12/21/18 at 19:00 Diphenhydramine HCl (Benadryl) 25 mg 1X PRN PRN IV ITCHING; Start 12/21/18 at 09:30; Stop 12/21/18 at 19:00 Diphenhydramine HCl (Benadryl) 25 mg 1X PRN PRN IV ITCHING; Start 12/21/18 at 09:30; Stop 12/21/18 at 19:00 Sodium Chloride 1,000 ml @ 400 mls/hr Q2H30M PRN IV PATENCY; Start 12/21/18 at 10:00; Stop 12/21/18 at 19:00 Info (PHARMACY MONITORING -- do not chart) 1 each PRN DAILY PRN MC SEE COMMENTS; Start 12/21/18 at 09:30; Status UNV Active Scripts Active Amlodipine Besylate 10 Mg Tablet 10 Mg PO DAILY MDD 1 Carvedilol (Carvedilol) 6.25 Mg Tablet 6.25 Mg PO BIDWMEALS MDD 1 Reported Tramadol Hcl 50 Mg Tablet 50 Mg PO Q6HRS PRN Renvela (Sevelamer Carbonate) 800 Mg Tablet 3 Tab PO TID Lasix (Furosemide) 80 Mg Tablet 1 Tab PO DAILY Lisinopril 20 Mg Tablet 1 Tab PO DAILY Allergies Allergies: Coded Allergies: aspirin (Verified Allergy, Intermediate, "burning in stomach", 12/01/18) ROS General: No: Chills, Other (fevers) PSYCHOLOGICAL ROS: No: Anxiety, Depression Eyes: No Blurry vision, No Double vision HEENT: No: Heacaches, Sore Throat Hematological and Lymphatic: No: Bleeding Problems, Blood Clots Respiratory: No: Cough, Shortness of breath Cardiovascular: No Chest Pain, No Palpitations Gastrointestinal: Yes Other (see hpi) Musculoskeletal: Yes Joint Pain Physical Exam General: Alert, Oriented X3, Cooperative, No acute distress HEENT: PERRLA, Mucous membr. moist/pink Lungs: Clear to auscultation, Normal air movement Heart: Regular rate, Normal S1, Normal S2, No murmurs Abdomen: Soft, Other (ND, NTTP, pd cath in place) Extremities: No clubbing, No cyanosis Skin: No rashes, No breakdown Neuro: Normal gait, Normal speech Psych/Mental Status: Mental status NL, Mood NL MUSCULOSKELETAL: No joint tenderness, No deformity Vitals VITALS Vital Signs Date Time Temp Pulse Resp B/P (MAP) Pulse Ox O2 Delivery O2 Flow Rate FiO2 12/21/18 08:58 89 139/85 12/21/18 08:00 Room Air 12/21/18 07:00 98.0 18 99 98.0 Labs Labs Laboratory Tests Test 12/20/18 16:25 12/20/18 16:45 12/21/18 07:10 Urine Collection Type Unknown Urine Color Straw Urine Clarity Clear Urine pH 7.0 Urine Specific [place] 1.010 Urine Protein 100 mg/dL (NEG-TRACE) Urine Glucose (UA) 250 mg/dL (NEG) Urine Ketones (Stick) Negative mg/dL (NEG) Urine Blood Trace (NEG) Urine Nitrite Negative (NEG) Urine Bilirubin Negative (NEG) Urine Urobilinogen Dipstick 0.2 mg/dL (0.2 mg/dL) Urine Leukocyte Esterase Negative (NEG) Urine RBC Rare /HPF (0-2) Urine WBC Occ /HPF (0-4) Urine Squamous Epithelial Cells Many /LPF Urine Bacteria Many /HPF (0-FEW) White Blood Count 8.4 x10^3/uL (4.0-11.0) Red Blood Count 3.51 x10^6/uL (3.50-5.40) Hemoglobin 10.8 g/dL (12.0-15.5) Hematocrit 32.3 % (36.0-47.0) Mean Corpuscular Volume 92 fL (79-100) Mean Corpuscular Hemoglobin 31 pg (25-35) Mean Corpuscular Hemoglobin Concent 33 g/dL (31-37) Red Cell Distribution Width 14.3 % (11.5-14.5) Platelet Count 219 x10^3/uL (140-400) Neutrophils (%) (Auto) 76 % (31-73) Lymphocytes (%) (Auto) 17 % (24-48) Monocytes (%) (Auto) 5 % (0-9) Eosinophils (%) (Auto) 2 % (0-3) Basophils (%) (Auto) 1 % (0-3) Neutrophils # (Auto) 6.3 x10^3uL (1.8-7.7) Lymphocytes # (Auto) 1.4 x10^3/uL (1.0-4.8) Monocytes # (Auto) 0.4 x10^3/uL (0.0-1.1) Eosinophils # (Auto) 0.2 x10^3/uL (0.0-0.7) Basophils # (Auto) 0.0 x10^3/uL (0.0-0.2) Sodium Level 139 mmol/L (136-145) 142 mmol/L (136-145) Potassium Level 7.0 mmol/L (3.5-5.1) 4.6 mmol/L (3.5-5.1) Chloride Level 104 mmol/L (98-107) 99 mmol/L (98-107) Carbon Dioxide Level 17 mmol/L (21-32) 30 mmol/L (21-32) Anion Gap 18 (6-14) 13 (6-14) Blood Urea Nitrogen 111 mg/dL (7-20) 51 mg/dL (7-20) Creatinine 15.0 mg/dL (0.6-1.0) 9.0 mg/dL (0.6-1.0) Estimated GFR (Cockcroft-Gault) 2.6 4.7 BUN/Creatinine Ratio 7 (6-20) 6 (6-20) Glucose Level 81 mg/dL (70-99) 90 mg/dL (70-99) Calcium Level 9.7 mg/dL (8.5-10.1) 9.6 mg/dL (8.5-10.1) Total Bilirubin 0.3 mg/dL (0.2-1.0) 0.3 mg/dL (0.2-1.0) Aspartate Amino Transf (AST/SGOT) 13 U/L (15-37) 15 U/L (15-37) Alanine Aminotransferase (ALT/SGPT) 14 U/L (14-59) 14 U/L (14-59) Alkaline Phosphatase 85 U/L (46-116) 86 U/L (46-116) Total Protein 7.2 g/dL (6.4-8.2) 7.2 g/dL (6.4-8.2) Albumin 3.5 g/dL (3.4-5.0) 3.5 g/dL (3.4-5.0) Albumin/Globulin Ratio 0.9 (1.0-1.7) 0.9 (1.0-1.7) Laboratory Tests Test 12/20/18 16:25 12/20/18 16:45 12/21/18 07:10 Urine Collection Type Unknown Urine Color Straw Urine Clarity Clear Urine pH 7.0 Urine Specific [place] 1.010 Urine Protein 100 mg/dL (NEG-TRACE) Urine Glucose (UA) 250 mg/dL (NEG) Urine Ketones (Stick) Negative mg/dL (NEG) Urine Blood Trace (NEG) Urine Nitrite Negative (NEG) Urine Bilirubin Negative (NEG) Urine Urobilinogen Dipstick 0.2 mg/dL (0.2 mg/dL) Urine Leukocyte Esterase Negative (NEG) Urine RBC Rare /HPF (0-2) Urine WBC Occ /HPF (0-4) Urine Squamous Epithelial Cells Many /LPF Urine Bacteria Many /HPF (0-FEW) White Blood Count 8.4 x10^3/uL (4.0-11.0) Red Blood Count 3.51 x10^6/uL (3.50-5.40) Hemoglobin 10.8 g/dL (12.0-15.5) Hematocrit 32.3 % (36.0-47.0) Mean Corpuscular Volume 92 fL (79-100) Mean Corpuscular Hemoglobin 31 pg (25-35) Mean Corpuscular Hemoglobin Concent 33 g/dL (31-37) Red Cell Distribution Width 14.3 % (11.5-14.5) Platelet Count 219 x10^3/uL (140-400) Neutrophils (%) (Auto) 76 % (31-73) Lymphocytes (%) (Auto) 17 % (24-48) Monocytes (%) (Auto) 5 % (0-9) Eosinophils (%) (Auto) 2 % (0-3) Basophils (%) (Auto) 1 % (0-3) Neutrophils # (Auto) 6.3 x10^3uL (1.8-7.7) Lymphocytes # (Auto) 1.4 x10^3/uL (1.0-4.8) Monocytes # (Auto) 0.4 x10^3/uL (0.0-1.1) Eosinophils # (Auto) 0.2 x10^3/uL (0.0-0.7) Basophils # (Auto) 0.0 x10^3/uL (0.0-0.2) Sodium Level 139 mmol/L (136-145) 142 mmol/L (136-145) Potassium Level 7.0 mmol/L (3.5-5.1) 4.6 mmol/L (3.5-5.1) Chloride Level 104 mmol/L (98-107) 99 mmol/L (98-107) Carbon Dioxide Level 17 mmol/L (21-32) 30 mmol/L (21-32) Anion Gap 18 (6-14) 13 (6-14) Blood Urea Nitrogen 111 mg/dL (7-20) 51 mg/dL (7-20) Creatinine 15.0 mg/dL (0.6-1.0) 9.0 mg/dL (0.6-1.0) Estimated GFR (Cockcroft-Gault) 2.6 4.7 BUN/Creatinine Ratio 7 (6-20) 6 (6-20) Glucose Level 81 mg/dL (70-99) 90 mg/dL (70-99) Calcium Level 9.7 mg/dL (8.5-10.1) 9.6 mg/dL (8.5-10.1) Total Bilirubin 0.3 mg/dL (0.2-1.0) 0.3 mg/dL (0.2-1.0) Aspartate Amino Transf (AST/SGOT) 13 U/L (15-37) 15 U/L (15-37) Alanine Aminotransferase (ALT/SGPT) 14 U/L (14-59) 14 U/L (14-59) Alkaline Phosphatase 85 U/L (46-116) 86 U/L (46-116) Total Protein 7.2 g/dL (6.4-8.2) 7.2 g/dL (6.4-8.2) Albumin 3.5 g/dL (3.4-5.0) 3.5 g/dL (3.4-5.0) Albumin/Globulin Ratio 0.9 (1.0-1.7) 0.9 (1.0-1.7) Assessment/Plan Assessment/Plan pd cath malfunction will review with Dr Olivo continue HD MARIA ISABEL LOIVO MD 12/21/18 1757: CONSULT Assessment/Plan Assessment/Plan pt seen in dialysis feels much better after being dialyzed had IR try to open PD catheter recently, unsuccessfully I offered l/s repositioning/replacement of her catheter she is not sure she wants to continue trying to use PD she will think about it and follow up with me in the office thanks for consult GRECIA MORALES APRN December 21, 2018 10:53 MARIA ISABEL OLIVO MD December 21, 2018 12:59
--- NOTE | 2018-12-21 15:00 | PDOC3 ---
Discharge Summary Visit Information Date of Admission: December 20, 2018 Date of Discharge: December 21, 2018 Admitting Diagnosis: Hyperkalemia Final Diagnosis Problems Medical Problems: (1) Hyperkalemia Status: Acute Brief Hospital Course Allergies Allergies Coded Allergies Type Severity Reaction Last Updated Verified aspirin Allergy Intermediate "burning in stomach" 12/01/18 Yes Vital Signs Vital Signs Date Time Temp Pulse Resp B/P (MAP) Pulse Ox O2 Delivery O2 Flow Rate FiO2 12/21/18 08:58 89 139/85 12/21/18 08:00 Room Air 12/21/18 07:00 98.0 18 99 98.0 Gen.: well-developed well-nourished in no apparent distress Head: Normal shape atraumatic Eyes: Pupils equal reactive to light and accommodation, normal conjunctivae and lids Ears: Normal shape Nose: Normal shape no trauma Mouth: No exudates of the back of throat no thrush no lesions Neck: Supple no JVD no carotid bruit or lymphadenopathy no thyromegaly Chest: Lungs clear to auscultation with good inspiratory effort no crackles rales or rhonchi Cardiovascular: S1-S2 regular rhythm no murmurs gallops or rubs Abdomen: Bowel sounds present soft nontender no hepatosplenomegaly appreciated sign Extremities: No clubbing no cyanosis no edema peripheral pulses palpated bilaterally Neurological: Alert awake oriented in person time place and situation, cranial nerves II through XII intact, no motor or sensory deficits appreciated Psych: Appropriate mood, cooperative Lab Results Laboratory Tests Test 12/20/18 16:25 12/20/18 16:45 12/21/18 07:10 Urine Collection Type Unknown Urine Color Straw Urine Clarity Clear Urine pH 7.0 Urine Specific [place] 1.010 Urine Protein 100 mg/dL (NEG-TRACE) Urine Glucose (UA) 250 mg/dL (NEG) Urine Ketones (Stick) Negative mg/dL (NEG) Urine Blood Trace (NEG) Urine Nitrite Negative (NEG) Urine Bilirubin Negative (NEG) Urine Urobilinogen Dipstick 0.2 mg/dL (0.2 mg/dL) Urine Leukocyte Esterase Negative (NEG) Urine RBC Rare /HPF (0-2) Urine WBC Occ /HPF (0-4) Urine Squamous Epithelial Cells Many /LPF Urine Bacteria Many /HPF (0-FEW) White Blood Count 8.4 x10^3/uL (4.0-11.0) Red Blood Count 3.51 x10^6/uL (3.50-5.40) Hemoglobin 10.8 g/dL (12.0-15.5) Hematocrit 32.3 % (36.0-47.0) Mean Corpuscular Volume 92 fL (79-100) Mean Corpuscular Hemoglobin 31 pg (25-35) Mean Corpuscular Hemoglobin Concent 33 g/dL (31-37) Red Cell Distribution Width 14.3 % (11.5-14.5) Platelet Count 219 x10^3/uL (140-400) Neutrophils (%) (Auto) 76 % (31-73) Lymphocytes (%) (Auto) 17 % (24-48) Monocytes (%) (Auto) 5 % (0-9) Eosinophils (%) (Auto) 2 % (0-3) Basophils (%) (Auto) 1 % (0-3) Neutrophils # (Auto) 6.3 x10^3uL (1.8-7.7) Lymphocytes # (Auto) 1.4 x10^3/uL (1.0-4.8) Monocytes # (Auto) 0.4 x10^3/uL (0.0-1.1) Eosinophils # (Auto) 0.2 x10^3/uL (0.0-0.7) Basophils # (Auto) 0.0 x10^3/uL (0.0-0.2) Sodium Level 139 mmol/L (136-145) 142 mmol/L (136-145) Potassium Level 7.0 mmol/L (3.5-5.1) 4.6 mmol/L (3.5-5.1) Chloride Level 104 mmol/L (98-107) 99 mmol/L (98-107) Carbon Dioxide Level 17 mmol/L (21-32) 30 mmol/L (21-32) Anion Gap 18 (6-14) 13 (6-14) Blood Urea Nitrogen 111 mg/dL (7-20) 51 mg/dL (7-20) Creatinine 15.0 mg/dL (0.6-1.0) 9.0 mg/dL (0.6-1.0) Estimated GFR (Cockcroft-Gault) 2.6 4.7 BUN/Creatinine Ratio 7 (6-20) 6 (6-20) Glucose Level 81 mg/dL (70-99) 90 mg/dL (70-99) Calcium Level 9.7 mg/dL (8.5-10.1) 9.6 mg/dL (8.5-10.1) Total Bilirubin 0.3 mg/dL (0.2-1.0) 0.3 mg/dL (0.2-1.0) Aspartate Amino Transf (AST/SGOT) 13 U/L (15-37) 15 U/L (15-37) Alanine Aminotransferase (ALT/SGPT) 14 U/L (14-59) 14 U/L (14-59) Alkaline Phosphatase 85 U/L (46-116) 86 U/L (46-116) Total Protein 7.2 g/dL (6.4-8.2) 7.2 g/dL (6.4-8.2) Albumin 3.5 g/dL (3.4-5.0) 3.5 g/dL (3.4-5.0) Albumin/Globulin Ratio 0.9 (1.0-1.7) 0.9 (1.0-1.7) Laboratory Tests Test 12/20/18 16:25 12/20/18 16:45 12/21/18 07:10 Urine Collection Type Unknown Urine Color Straw Urine Clarity Clear Urine pH 7.0 Urine Specific [place] 1.010 Urine Protein 100 mg/dL (NEG-TRACE) Urine Glucose (UA) 250 mg/dL (NEG) Urine Ketones (Stick) Negative mg/dL (NEG) Urine Blood Trace (NEG) Urine Nitrite Negative (NEG) Urine Bilirubin Negative (NEG) Urine Urobilinogen Dipstick 0.2 mg/dL (0.2 mg/dL) Urine Leukocyte Esterase Negative (NEG) Urine RBC Rare /HPF (0-2) Urine WBC Occ /HPF (0-4) Urine Squamous Epithelial Cells Many /LPF Urine Bacteria Many /HPF (0-FEW) White Blood Count 8.4 x10^3/uL (4.0-11.0) Red Blood Count 3.51 x10^6/uL (3.50-5.40) Hemoglobin 10.8 g/dL (12.0-15.5) Hematocrit 32.3 % (36.0-47.0) Mean Corpuscular Volume 92 fL (79-100) Mean Corpuscular Hemoglobin 31 pg (25-35) Mean Corpuscular Hemoglobin Concent 33 g/dL (31-37) Red Cell Distribution Width 14.3 % (11.5-14.5) Platelet Count 219 x10^3/uL (140-400) Neutrophils (%) (Auto) 76 % (31-73) Lymphocytes (%) (Auto) 17 % (24-48) Monocytes (%) (Auto) 5 % (0-9) Eosinophils (%) (Auto) 2 % (0-3) Basophils (%) (Auto) 1 % (0-3) Neutrophils # (Auto) 6.3 x10^3uL (1.8-7.7) Lymphocytes # (Auto) 1.4 x10^3/uL (1.0-4.8) Monocytes # (Auto) 0.4 x10^3/uL (0.0-1.1) Eosinophils # (Auto) 0.2 x10^3/uL (0.0-0.7) Basophils # (Auto) 0.0 x10^3/uL (0.0-0.2) Sodium Level 139 mmol/L (136-145) 142 mmol/L (136-145) Potassium Level 7.0 mmol/L (3.5-5.1) 4.6 mmol/L (3.5-5.1) Chloride Level 104 mmol/L (98-107) 99 mmol/L (98-107) Carbon Dioxide Level 17 mmol/L (21-32) 30 mmol/L (21-32) Anion Gap 18 (6-14) 13 (6-14) Blood Urea Nitrogen 111 mg/dL (7-20) 51 mg/dL (7-20) Creatinine 15.0 mg/dL (0.6-1.0) 9.0 mg/dL (0.6-1.0) Estimated GFR (Cockcroft-Gault) 2.6 4.7 BUN/Creatinine Ratio 7 (6-20) 6 (6-20) Glucose Level 81 mg/dL (70-99) 90 mg/dL (70-99) Calcium Level 9.7 mg/dL (8.5-10.1) 9.6 mg/dL (8.5-10.1) Total Bilirubin 0.3 mg/dL (0.2-1.0) 0.3 mg/dL (0.2-1.0) Aspartate Amino Transf (AST/SGOT) 13 U/L (15-37) 15 U/L (15-37) Alanine Aminotransferase (ALT/SGPT) 14 U/L (14-59) 14 U/L (14-59) Alkaline Phosphatase 85 U/L (46-116) 86 U/L (46-116) Total Protein 7.2 g/dL (6.4-8.2) 7.2 g/dL (6.4-8.2) Albumin 3.5 g/dL (3.4-5.0) 3.5 g/dL (3.4-5.0) Albumin/Globulin Ratio 0.9 (1.0-1.7) 0.9 (1.0-1.7) Brief Hospital Course Patient who is a n ESRD on HD who recently is transitioning to peritoneal dialysis was in her usual state of health. She came to have her labs checked and found to be hyperkalemic reason why we were asked to admit for consult with nephrology and HD treatment to correct her hyeprkalemia. No dietary tr ansgression reported. SHe has just started the transition. Patient denies chest pain no palpitations no shortness of breath no signs of decompensation , Patient is being evluated in the dialysis center. No concerns voiced during my encounter SHe 2 sessions of hemodialysis that result for hyperkalemia. She will continue with her hemodialysis on Tuesday as she was previously doing. She was seen in consultation by surgery due to a suspected PD catheter malfunction consultation was as follows: pt seen in dialysis feels much better after being dialyzed had IR try to open PD catheter recently, unsuccessfully I offered l/s repositioning/replacement of her catheter she is not sure she wants to continue trying to use PD she will think about it and follow up with me in the office Patient in good spirits to be discharged home signs and symptoms of alarm discussed in detail all concerns addressed to the best of my abilities Discharge Information Condition at Discharge: Improved Follow Up: Weeks Disposition/Orders: D/C to Home Scheduled Amlodipine Besylate (Amlodipine Besylate) 10 Mg Tablet, 10 MG PO DAILY for htn MDD 1, #30 Prescribed by: RENITA NUÑEZ on 08/29/18 1055 Last Action: Continued on 12/20/182005 by SNEHA VELEZ MD Carvedilol (Carvedilol ) 6.25 Mg Tablet, 6.25 MG PO BIDWMEALS for htn MDD 1, #60 Prescribed by: RENITA NUÑEZ on 08/29/18 1055 Last Action: Continued on 12/20/182005 by SNEHA VLEEZ MD Furosemide (Lasix) 80 Mg Tablet, 1 TAB PO DAILY for RX, #30 Ref 5 (Reported) Entered as Reported by: WARD ROBERTSON on 12/20/18 103 Last Action: Continued on 12/20/182005 by SNEHA VELEZ MD Lisinopril (Lisinopril) 20 Mg Tablet, 1 TAB PO DAILY for HTN, #30 Ref 5 (Reported) Entered as Reported by: WARD ROBERTSON on 12/20/18 1033 Last Action: Continued on 12/20/182005 by SNEHA VELEZ MD Sevelamer Carbonate (Renvela) 800 Mg Tablet, 3 TAB PO TID for ESRD, (Reported) Entered as Reported by: PARISH LAN RN on 12/20/182231 Last Action: Continued on 12/20/182233 by PARISH LAN RN Scheduled PRN Tramadol Hcl (Tramadol Hcl) 50 Mg Tablet, 50 MG PO Q6HRS PRN for PAIN, (Repor chinmay) Entered as Reported by: PARISH LAN RN on 12/20/182231 Last Action: New Order on 12/20/182231 by VIN GIL HECTOR M MD December 21, 2018 15:00
[2018-12-21 15:18] VITALS: BP 101/68
--- NOTE | 2018-12-21 17:10 | NUR ---
Discharge instructions given to patient and family. Patient verbalized understanding and need for follow up appointment.
== END 2018-12-21 17:10 | disposition home or self-care (01) | DRG 919 ==
LOC: ER 16:07 → 6 SOUTH 17:10
PROVIDERS: ADMIT Internal Medicine; ATTEND Internal Medicine
PROC: 5A1D70Z Performance of Urinary Filtration, Intermittent, Less than 6 Hours Per Day (ICD-10-PCS; principal; 2018-12-20)
PROC: 5A1D70Z Performance of Urinary Filtration, Intermittent, Less than 6 Hours Per Day (ICD-10-PCS; 2018-12-21)
PROC: BR1C1ZZ Fluoroscopy of Pelvis using Low Osmolar Contrast (ICD-10-PCS; 2018-12-21)
DX: T85.611A Breakdown (mechanical) of intraperitoneal dialysis catheter, initial encounter (principal); N18.6 End stage renal disease; I12.0 Hypertensive chronic kidney disease with stage 5 chronic kidney disease or end stage renal disease; E87.5 Hyperkalemia; E78.5 Hyperlipidemia, unspecified; J44.9 Chronic obstructive pulmonary disease, unspecified; Z99.2 Dependence on renal dialysis; F32.9 Major depressive disorder, single episode, unspecified; F41.9 Anxiety disorder, unspecified; Z79.899 Other long term (current) drug therapy; Z88.8 Allergy status to other drugs, medicaments and biological substances
CPT/HCPCS: 36415; 49400; 74190; 80053; 81001; 84132; 85025; 87086; 93005; A4215; C1769; Q9966; 99285-25

== ENCOUNTER 2019-01-29 07:18 | Outpatient (CLI) | payer MEDICARE, OTHER ==
[~2019-01-29] VITALS: Ht 154.9 cm; Wt 72.6 kg
[2019-01-29 07:40] LABS: BASO # 0.1 x10^3/uL (0.0-0.2); BASO % 1 % (0-3); EOS # 0.3 x10^3/uL (0.0-0.7); EOS % 4 % (0-3); HEMATOCRIT 28.1 % (36.0-47.0); HEMOGLOBIN 9.3 g/dL (12.0-15.5); LYMPH % 30 % (24-48); MEAN CORPUSCULAR HEMOGLOBIN 30 pg (25-35); MEAN CORPUSCULAR HGB CONC 33 g/dL (31-37); MEAN CORPUSCULAR VOLUME 91 fL (79-100); MONO # 0.4 x10^3/uL (0.0-1.1); MONO % 6 % (0-9); NEUT % 59 % (31-73); PLATELET COUNT 179 x10^3/uL (140-400); RED CELL DISTRIBUTION WIDTH 13.8 % (11.5-14.5); WHITE BLOOD COUNT 6.7 x10^3/uL (4.0-11.0)
[2019-01-29 07:45] VITALS: BP 105/74
[2019-01-29 07:56] LABS: PROTHROMBIN TIME PATIENT 13.3 SEC (11.7-14.0)
[2019-01-29 07:57] LABS: CALCIUM 9.4 mg/dL (8.5-10.1); CREATININE 9.3 mg/dL (0.6-1.0); GFR 4.6; POTASSIUM 3.7 mmol/L (3.5-5.1)
[2019-01-29] MEDS ORDERED: IOHEXOL 240 MG/ML 50ML VIAL. ONE (08:35)
[2019-01-29 09:30] VITALS: BP 113/81
[2019-01-29] MEDS ORDERED: CONTRAST GIVEN. MC PRN (09:30)
[2019-01-29] MEDS ORDERED: IOHEXOL 240 MG/ML 50ML VIAL. IT ONE (09:30)
--- NOTE | 2019-01-30 16:33 | RAD ---
Fluoroscopic evaluation of peritoneal dialysis catheter 12/21/2018 Indication: Catheter will not normally aspirate Comparison study: None relevant Discussion: Fluoroscopic evaluation of the previously existing peroneal dialysis catheter was performed. Catheter is grossly normal in position, curled in the pelvis, on initial fluoroscopic imaging. Contrast flows freely into the pelvis. A guidewire was advanced to the catheter however the catheter would not uncoil despite placement of a stiff guidewire. This could reflect pelvic adhesions, but is somewhat nonspecific given lack of contrast loculation. Sluggish aspiration persisted. Catheter was flushed and secured in place. Sterile dressings were applied. Fluoroscopy time: 1 MINUTE Dose area product: Gycm2 Impression: Inability to uncurl the pelvic peritoneal dialysis catheter with persistent sluggish aspiration
== END 2019-01-29 09:40 | disposition home or self-care (01) ==
LOC: INTRAD 07:18
PROVIDERS: ATTEND Surgery
DX: Z45.2 Encounter for adjustment and management of vascular access device (principal); Z79.01 Long term (current) use of anticoagulants
CPT/HCPCS: 36415; 49400; 74190; 80048; 85025; 85610; C1769; Q9966